=== PATIENT | female | born 1955 | race Caucasian/White ===

== ENCOUNTER 2017-10-25 11:26 | Emergency (ER) | payer MEDICAID ==
--- NOTE | 2017-10-25 11:30 | EDPHY ---
H & P Time Seen by Provider: 10/25/17 11:32 HPI/ROS: HPI CHIEF COMPLAINT: cough, fever HISTORY OF PRESENT ILLNESS: Patient very pleasant 62-year-old female she presents emergency room with cough and congestion intermittent wheezing over the past week. Patient reports on the of last month she got sick with what she believes to be upper respiratory tract infection. This is settled into her chest. She reports that she has had cough with productive yellow sputum. No blood. Denies any chest pain or chest tightness. She reports intermittent fever subjectively. She reports that she had fever this morning. Her main complaint is wheezing. She tried to smoke cigarettes today but was unable to do so due to shortness of breath. Past Medical History: COPD not on oxygen Past Surgical History: Denies recent surgical history Social History: Continues to smoke tobacco approximately 10 cigarettes per day Family History: Denies pertinent family history ROS REVIEW OF SYSTEMS: A comprehensive 10 point review of systems is otherwise negative aside from elements mentioned in the history of present illness. Exam Constitutional triage nursing summary reviewed, vital signs reviewed, awake/ alert. Appears well nontoxic Eyes normal conjunctivae and sclera, EOMI, PERRLA. HENT normal inspection, atraumatic, moist mucus membranes, no epistaxis, neck supple/ no meningismus, no raccoon eyes. Respiratory decreased breath sounds bilaterally faint wheezing bilaterally. Cardiovascular rate normal, regular rhythm, no murmur, no edema, distal pulses normal. Gastrointestinal soft, non-tender, no rebound, no guarding, normal bowel sounds, no distension, no pulsatile mass. Genitourinary no CVA tenderness. Musculoskeletal no midline vertebral tenderness, full range of motion, no calf swelling, no tenderness of extremities, no meningismus, good pulses, neurovascularly intact. Skin pink, warm, & dry, no rash, skin atraumatic. Neurologic awake, alert and oriented x 3, AAOx3, moves all 4 extremities equally, motor intact, sensory intact, CN II-XII intact, normal cerebellar, normal vision, normal speech. Psychiatric normal mood/affect. Heme/Lymph/Immune no lymphadenopathy. Differential Diagnosis: Includes but is not limited to in a particular order, bronchitis, viral syndrome, influenza, pneumonia, viral pneumonia, COPD exacerbation Medical Decision Making: Plan for this patient two view chest x-ray to rule pneumonia, prednisone 60 mg p.o., DuoNeb breathing treatment, check influenza and re-evaluate. Re-evaluation: Chest x-ray two view reviewed. This shows COPD but no focal pneumonia. Patient feeling better after breathing treatment. Influenza test is pending. She is afebrile and not hypoxic here. I do recommend she refrain from smoking tobacco. Prescription given for azithromycin, albuterol rescue inhaler, prednisone 60 mg and Mucinex D congestion. She distally has Advair inhaler and Spiriva. I went over how to use these. Return precautions discussion stands return emergency room if she has worsening shortness of breath, fever, vomiting chest pain chest tightness questions or concerns Source: Patient - Medical/Surgical History Hx Asthma: Yes Hx Chronic Respiratory Disease: Yes Hx Diabetes: Yes Hx Cardiac Disease: No Hx Renal Disease: No Hx Cirrhosis: No Hx Alcoholism: No Hx HIV/AIDS: No Hx Splenectomy or Spleen Trauma: No Other PMH: history of bronchitis Constitutional: Initial Vital Signs Temperature (C) 36.8 C 10/25/17 11:31 Heart Rate 71 10/25/17 11:31 Respiratory Rate 18 10/25/17 11:31 Blood Pressure 161/97 H 10/25/17 11:31 O2 Sat (%) 91 L 10/25/17 11:31 O2 Delivery Mode Room Air Allergies/Adverse Reactions: aspirin [Aspirin] Allergy (Verified 10/25/17 11:37) pentazocine lactate [From Talwin] Allergy (Verified 10/25/17 11:37) Home Medications: Medication Instructions Recorded Albuterol [Albuterol deyvial] 2.5 mg IH Q4H #24 deyvial 06/16/10 Nebulizer [COMPMIST COMPRESSOR NEB] 1 kit [facility] [place] #1 kit 06/16/10 Methadone HCl [Dolophine Hcl] 0 mg PO 04/18/11 Zolpidem Tartrate [Ambien] 5 mg PO HSPRN PRN #20 tab 04/18/11 AZITHROMYCIN [Z-PACK] 250 mg PO DAILY #1 packet 11/08/13 Albuterol [Proventil Neb] 2.5 mg IH Q4 #24 vial 11/08/13 predniSONE [Prednisone] 50 mg PO DAILY #4 tablet 11/08/13 Albuterol [Proventil Inhaler HFA 1 - 2 puffs IH Q4H #1 mdi 10/25/17 (*)] Azithromycin [Zithromax] 250 mg PO DAILY #6 tab 10/25/17 guaiFENesin [Guaifenesin ER] 600 mg PO BID #14 tab.er.12h 10/25/17 predniSONE 60 mg PO DAILY #15 tab 10/25/17 Medical Decision Making - Data Points Laboratory Results: 10/25/17 11:50 Nasal Influenza A PCR Pending Nasal Influenza B PCR Pending Medications Given: Discontinued Medications Albuterol/Ipratropium (Duoneb) 3 ml IH EDNOW ONE Stop: 10/25/17 11:43 Last Admin: 10/25/17 12:02 Dose: 3 ml Departure - Departure Disposition: Home, Routine, Self-Care Clinical Impression: Bronchitis Condition: Good Instructions: Acute Bronchitis (ED) Additional Instructions: 1. Drink lots of fluids stay well-hydrated. 2. Return emergency room if you have worsening symptoms questions or concerns. Referrals: BOAZ SPRAGUE [Primary Care Provider] - As per Instructions Prescriptions: Albuterol [Proventil Inhaler HFA (*)] 1 - 2 puffs IH Q4H #1 mdi Azithromycin [Zithromax] 250 mg PO DAILY #6 tab guaiFENesin [Guaifenesin ER] 600 mg PO BID #14 tab.er.12h predniSONE 60 mg PO DAILY #15 tab
[2017-10-25 11:37] VITALS: BP 161/97; PULSE 71; RESP 18; TEMP 98.2; O2SAT 91
[2017-10-25] MEDS ORDERED: IPRATROPIUM/ALBUTEROL 3 ML DEYVIAL IH ONE (11:42)
== END 2017-10-25 12:25 | disposition home or self-care (01) ==
LOC: CED 11:26
DX: J20.9 Acute bronchitis, unspecified (principal); J44.9 Chronic obstructive pulmonary disease, unspecified; E11.9 Type 2 diabetes mellitus without complications; F17.210 Nicotine dependence, cigarettes, uncomplicated
CPT/HCPCS: 71046-PO

== ENCOUNTER 2017-11-01 12:41 | Emergency (ER) | payer MEDICAID ==
[2017-11-01 12:54] VITALS: TEMP 97.7
--- NOTE | 2017-11-01 13:01 | CPEKG ---
Heart Rate: 66 RR Interval: 909 P-R Interval: 128 QRSD Interval: 82 QT Interval: 392 QTC Interval: 411 P Lookout: 78 QRS Lookout: 7 T Wave Lookout: 49 EKG Severity - OTHERWISE NORMAL ECG - EKG Impression: SINUS RHYTHM EKG Impression: LOW VOLTAGE IN FRONTAL LEADS EKG Impression: normal sinus rhythm with normal rate, normal intervals, normal axis. Low EKG Impression: voltage in multiple leads. No ST T wave changes to suggest ischemia or EKG Impression: infarct. Impression low voltage otherwise normal EKG. Electronically Signed By: Aleksandra Rouse 01-Nov-2017 13:19:26
--- NOTE | 2017-11-01 13:20 | EDPHY ---
H & P Time Seen by Provider: 11/01/17 12:49 Past Medical/Surgical History: CHIEF COMPLAINT: Dizziness HISTORY OF PRESENT ILLNESS: Patient presents to the emergency department complaining of dizziness. She states it started a couple of days ago. She attributes it to a recent course of azithromycin. She was seen at this facility last week for bronchitis in the context of COPD. She was started on azithromycin also prednisone. She finished her azithromycin 2 days ago. She states she has a little better but still with cough. She states the dizziness is"like I am going to faint". She denies spinning or other vertiginous symptoms. She has had no syncope but does need to occasionally grab something when she is walking. She denies chest pain. She denies any worsening shortness of breath other than her residual bronchitis. She may have had a fever on her previous visit to this emergency department. Since her visit here last week she has seen her primary care physician who extended her prednisone but prescribed no further antibiotics. Patient arrived in the emergency department hypoxic but she states she usually is on home O2 at 3 liters/minute. She did not bring it with her today because she was"in a dunlap"to get to the emergency department. Contents of 10 point review of systems otherwise negative except for what is mentioned in HPI. General Appearance: Alert, no distress. Eyes: Pupils equal and round no pallor or injection. Some dysconjugate gaze at baseline. ENT, Mouth: Mucous membranes moist. Respiratory: There are no retractions, lungs with occasional wheezes. No respiratory distress. Cardiovascular: Regular rate and rhythm. Normal femoral pulses, no extremity edema. Gastrointestinal: Abdomen is soft and nontender, no masses, bowel sounds normal. Neurological: Awake and alert, no focal motor deficits. Skin: Warm and dry, no rashes. Musculoskeletal: Neck is supple nontender. Extremities are symmetrical, full range of motion, no edema. Psychiatric: Patient is oriented X 3, there is no agitation. Medical/surgical history: Emphysema, chronic methadone use. Surgeries include C-sections, ectopic , hernia. Social history: Uses tobacco, infrequent alcohol, no other drugs. Smoking Status: Heavy smoker Constitutional: Initial Vital Signs Temperature (C) 36.5 C 11/01/17 12:51 Heart Rate 69 11/01/17 12:51 Respiratory Rate 18 11/01/17 12:51 Blood Pressure 158/111 H 11/01/17 12:51 O2 Sat (%) 85 L 11/01/17 12:51 O2 Delivery Mode Nasal Cannula O2 (L/minute) 2 Allergies/Adverse Reactions: aspirin [Aspirin] Allergy (Verified 11/01/17 12:55) azithromycin Adverse Reaction (Intermediate, Verified 11/01/17 13:58) pentazocine lactate [From Talwin] Adverse Reaction (Intermediate, Verified 11/01 13:57) Home Medications: Medication Instructions Recorded Albuterol [Albuterol deyvial] 2.5 mg IH Q4H #24 deyvial 06/16/10 Nebulizer [COMPMIST COMPRESSOR NEB] 1 kit [facility] #1 kit 06/16/10 Methadone HCl [Dolophine Hcl] 0 mg PO 04/18/11 Albuterol [Proventil Neb] 2.5 mg IH Q4 #24 vial 11/08/13 predniSONE [Prednisone] 50 mg PO DAILY #4 tablet 11/08/13 Albuterol [Proventil Inhaler HFA 1 - 2 puffs IH Q4H #1 mdi 10/25/17 (*)] guaiFENesin [Guaifenesin ER] 600 mg PO BID #14 tab.er.12h 10/25/17 predniSONE 60 mg PO DAILY #15 tab 10/25/17 Medical Decision Making - Diagnostics Imaging Results: Imaging Impressions Chest X-Ray 11/01/17 13:57 Impression: 1. Mild peribronchial cuffing in the perihilar region. This is stable and could represent chronic bronchitis or reactive airways disease. 2. Prominence of pericardial fat pad in the region of the lingula suspected. There is adjacent scarring. Chest x-ray shows COPD but no focal pneumonia. No significant change when compared to prior. Imaging: I viewed and interpreted images myself ED Course/Re-evaluation: Normal EKG. See trace master for detailed report. Patient is stating that she has gotten something for this adverse reaction in the past. Unclear what this medication is. Had not heard of Cogentin, diphenhydramine, meclizine. States that was given to her by her primary care physician at [facility]. Patient also tells me now that she was not using home O2 until recently. Asking to be discharged. Blood pressure improved last noted to be 134/97. Differential Diagnosis: Differential diagnosis includes but is not limited to vertigo, syncope, arrhythmia, hyponatremia, hypoxia, COPD exacerbation, withdrawal, anxiety. After evaluation unclear cause for patient's symptoms. No arrhythmias, tachycardia. Patient was hypoxic when she arrived but insists she will use her home O2 as directed. Maintain sats in the 90s with 2 L per nasal cannula. No evidence of febrile illness or other bacterial infection. Low suspicion for opiate withdrawal as taking her methadone regularly. Lab values reassuring. Patient asking to be discharged and agrees to use her medications as prescribed after her ED visit. Also will follow up with her primary care physician on Friday. Understands return precautions. Stable for discharge. - Data Points Laboratory Results: Laboratory Results 11/01/17 13:40 11/01/17 13:40 11/01/17 11/01/17 13:40 13:40 WBC 8.77 10^3/uL 10^3/uL (3.80-9.50) RBC 4.34 10^6/uL 10^6/uL (4.18-5.33) Hgb 14.8 g/dL g/dL (12.6-16.3) Hct 43.2 % % (38.0-47.0) MCV 99.5 fL fL (81.5-99.8) MCH 34.1 pg pg (27.9-34.1) MCHC 34.3 g/dL g/dL (32.4-36.7) RDW 12.9 % % (11.5-15.2) Plt Count 210 10^3/uL 10^3/uL (150-400) MPV 8.4 fL L fL (8.7-11.7) Neut % (Auto) 55.5 % % (39.3-74.2) Lymph % (Auto) 36.0 % % (15.0-45.0) Henry % (Auto) 6.0 % % (4.5-13.0) Eos % (Auto) 1.9 % % (0.6-7.6) Baso % (Auto) 0.3 % % (0.3-1.7) Nucleat RBC Rel Count 0.0 % % (0.0-0.2) Absolute Neuts (auto) 4.85 10^3/uL 10^3/uL (1.70-6.50) Absolute Lymphs (auto) 3.16 10^3/uL H 10^3/uL (1.00-3.00) Absolute Monos (auto) 0.53 10^3/uL 10^3/uL (0.30-0.80) Absolute Eos (auto) 0.17 10^3/uL 10^3/uL (0.03-0.40) Absolute Basos (auto) 0.03 10^3/uL 10^3/uL (0.02-0.10) Absolute Nucleated RBC 0.00 10^3/uL 10^3/uL (0-0.01) Immature Gran % 0.3 % % (0.0-1.1) Immature Gran # 0.03 10^3/uL 10^3/uL (0.00-0.10) Sodium 135 mEq/L mEq/L (135-145) Potassium 4.5 mEq/L mEq/L (3.5-5.2) Chloride 101 mEq/L mEq/L (97-110) Carbon Dioxide 26 mEq/l mEq/l (22-31) Anion Gap 8 mEq/L mEq/L (8-16) BUN 19 mg/dL mg/dL (7-23) Creatinine 1.0 mg/dL mg/dL (0.6-1.0) Estimated GFR 57 Glucose 78 mg/dL mg/dL (70-100) Calcium 9.4 mg/dL mg/dL (8.5-10.4) Medications Given: Discontinued Medications Benztropine Mesylate (Cogentin) 2 mg PO EDNOW ONE Stop: 11/01/17 13:58 Last Admin: 11/01/17 14:28 Dose: Not Given Departure - Departure Disposition: Home, Routine, Self-Care Clinical Impression: Dizziness Condition: Fair Instructions: Lightheadedness (ED) Additional Instructions: Please use your oxygen continuously until you follow up with the primary care physician. Take your nebulizer treatments at home this afternoon without fail. Continue the rest of your medications as prescribed. See your primary care physician early next week. Return to the emergency department for any new or concerning symptoms. Referrals: BOAZ SPRAGUE [Primary Care Provider] - As per Instructions
[2017-11-01 13:53] LABS: PLATELET COUNT 210 10^3/uL (150-400)
[2017-11-01] MEDS ORDERED: BENZTROPINE MESYLATE 2 MG TAB PO ONE (13:57)
[2017-11-01 14:06] VITALS: BP 134/97; PULSE 73; RESP 16
[2017-11-01 14:54] VITALS: O2SAT 95
== END 2017-11-01 14:30 | disposition home or self-care (01) ==
LOC: CED 12:41
DX: R42 Dizziness and giddiness (principal); F17.200 Nicotine dependence, unspecified, uncomplicated
CPT/HCPCS: 71045-PO; 80048-PO; 85025-PO